=== PATIENT | female | born 1985 | race Caucasian/White ===

== ENCOUNTER 2018-11-25 01:33 | Emergency (ER) | payer OTHER ==
[~2018-11-25] VITALS: Ht 170.2 cm; Wt 61.2 kg
[2018-11-25] MEDS ORDERED: BENADRYL25 MG PO (06:14)
[2018-11-25] MEDS ORDERED: MEDROL8 MG PO (06:14)
== END 2018-11-25 06:18 | disposition home or self-care (01) ==
LOC: ER 01:33
DX: L50.8 Other urticaria (principal)

== ENCOUNTER 2019-06-24 18:40 | Emergency (ER) | payer OTHER ==
[~2019-06-24] VITALS: Ht 170.2 cm; Wt 63.5 kg
[~2019-06-24 18:40] MED LIST: BENADRYL25 MG PO; MEDROL8 MG PO
[2019-06-24] MEDS ORDERED: TUSNEL LIQUID178 ML PO (21:39)
[2019-06-24] MEDS ORDERED: ZITHROMAX500 MG PO (21:39)
== END 2019-06-24 21:56 | disposition home or self-care (01) ==
LOC: ER 18:40
DX: B34.9 Viral infection, unspecified (principal); Z33.1 Pregnant state, incidental

== ENCOUNTER → 2019-08-16 | Outpatient (CLI) | payer OTHER ==
[~2019-08-16] MED LIST changes: +TUSNEL LIQUID178 ML PO; +ZITHROMAX500 MG PO
== END | disposition home or self-care (01) ==
LOC: PRENATAL 13:31
DX: O09.511 Supervision of elderly primigravida, first trimester (principal); O36.80X1 Pregnancy with inconclusive fetal viability, fetus 1

== ENCOUNTER 2019-09-06 08:58 | Outpatient (CLI) | payer OTHER | END 2019-09-06 09:05 | disposition home or self-care (01) | LOC: LAB 08:58 | DX: J11.1 Influenza due to unidentified influenza virus with other respiratory manifestations (principal) ==

== ENCOUNTER 2019-09-15 10:07 | Outpatient (CLI) | payer OTHER | END 2019-09-15 10:14 | disposition home or self-care (01) | LOC: LAB 10:07 | DX: Z34.82 Encounter for supervision of other normal pregnancy, second trimester (principal) ==

== ENCOUNTER → 2019-09-21 10:21 | Outpatient (CLI) | payer OTHER | END | disposition home or self-care (01) | LOC: LAB 10:21 | DX: O28.5 Abnormal chromosomal and genetic finding on antenatal screening of mother (principal); O09.519 Supervision of elderly primigravida, unspecified trimester ==

== ENCOUNTER → 2019-09-21 | Outpatient (CLI) | payer OTHER | END | disposition home or self-care (01) | LOC: PRENATAL 08:00 | DX: O28.1 Abnormal biochemical finding on antenatal screening of mother (principal); O35.0XX1 Maternal care for (suspected) central nervous system malformation in fetus, fetus 1; O35.3XX1 Maternal care for (suspected) damage to fetus from viral disease in mother, fetus 1; O28.5 Abnormal chromosomal and genetic finding on antenatal screening of mother; O09.512 Supervision of elderly primigravida, second trimester ==